=== PATIENT | male | born 1990 | race Caucasian/White ===

== ENCOUNTER 2017-02-26 14:04 | Emergency (ER) | payer MEDICAID ==
[~2017-02-26] VITALS: Ht 167.6 cm; Wt 86.0 kg
[2017-02-26 14:28] VITALS: BP 114/68
== END 2017-02-26 19:30 | disposition left against medical advice (07) ==
LOC: ER 14:47
DX: R45.851 Suicidal ideations (principal); Z53.21 Procedure and treatment not carried out due to patient leaving prior to being seen by health care provider